=== PATIENT | female | born 1940 | race Caucasian/White ===

== ENCOUNTER 2017-11-05 12:35 | Inpatient (IN) ==
[2017-11-05] MEDS ORDERED: 0.9 % Sodium Chloride 1,000 ML IVC ONE (13:00)
[2017-11-05] MEDS ORDERED: Isovue-370 500 ML INFUS..BTL IV ONE (13:01)
[2017-11-05] MEDS ORDERED: Metoclopramide 10 MG/2 ML VIAL IVP ONE (13:01)
[2017-11-05] MEDS ORDERED: *HR* FentaNYL (PF) 100 MCG/2 ML VIAL IVP ONE ×3 (13:01→18:58)
--- NOTE | 2017-11-05 13:03 | Emergency Department Note ---
Disposition Clinical Impression: Sterile pyuria Abdominal pain Qualifiers: Abdominal location: unspecified location Qualified Code(s): R10.9 - Unspecified abdominal pain Acute pancreatitis Qualifiers: Pancreatitis type: unspecified pancreatitis type Disposition: Admitted As Inpatient Condition: Good Referrals: Princess Luque MD [Primary Care Provider] - Forms: ED Satisfaction Letter, Work/School Release General Adult HPI - General Chief complaint: ED Abdominal Pain Stated complaint: Vomiting, abd pain Time Seen by Provider: 11/05/17 12:43 Source: patient Limitations: no limitations Nursing Notes Reviewed: Yes Vital Signs Reviewed: Yes - History of Present Illness HPI Narrative: 76-year-old female with a past medical history of hypertension, hyperlipidemia, diabetes, COPD. she reports onset of generalized abdominal pain with nausea and vomiting that began approximately 48 hours ago. She does not know what precipitated the pain. She denies having pain like this before. She denies any problems with constipation or diarrhea. No fever. The only surgery she has had in her abdomen are a tubal ligation years ago. She denies any difficulty with urinating. Vomit is nonbilious nonbloody. She reports the last time she ate or drank anything was early this morning and that she only had clear liquids. That was at about 8:00am which is about 5 hours prior to arrival. She reports numerous episodes of vomiting. No chest pain or shortness of breath. She saw Dr Garcia 2 years ago for a colonoscopy which she reports was unremarkable. Radiation: non-radiation Pain Severity: severe Pain Scale: 10 Consistency: constant Improves with: nothing Worsens with: nothing Associated symptoms: Reports: denies other symptoms Treatments Prior to Arrival: none - Related Data Allergies Allergy/AdvReac Type Severity Reaction Status Date / Time No Known Allergies Allergy Verified 11/05/17 16:17 All systems ED: reviewed and negative except as stated. Constitutional: Denies: fever ENT ED: Denies: throat pain Cardiovascular: Denies: chest pain Respiratory: Denies: cough Gastrointestinal: Reports: abdominal pain, nausea, vomiting. Denies: diarrhea, constipation Musculoskeletal: Denies: back pain Integumentary: Denies: rash Endocrine: Reports: fatigue Past Medical History - Past Medical History Medical history: Reports: arthritis, COPD, GERD, hypertension Psychiatric history: Reports: no psych history - Social History Smoking Status: Current every day smoker Alcohol use: Reports: none Physical Exam - General Limitations: no limitations General appearance: alert, in no apparent distress - Head Head exam: atraumatic - Eye Eye exam: Present: normal appearance, PERRL - ENT ENT exam: normal exam - Neck Neck exam: Present: normal inspection - Chest Chest inspection: Present: normal inspection - Respiratory Respiratory exam: Present: normal lung sounds bilaterally. Absent: respiratory distress - Cardiovascular Cardiovascular exam: Present: normal rhythm, tachycardia - Abdominal Exam Abdominal exam: Present: soft, tenderness (Generalized tenderness with guarding and rebound.) - Extremities Exam Extremities exam: Present: normal inspection - Neurological Exam Neurological exam: Present: alert, oriented X3 - Skin Skin exam: Present: warm, dry Course Course Narrative: 1mm of ST depression in lateral leads. No chest pain or DALE. No old EKG to compare to. Negative troponin. CT scan shows diffuse inflammation around the pancreas along with free fluid in the abdomen. WBC count is elevated at she is afebrile. Lipase is elevated and she has a sterile pyuria. This is likely secondary to acute pancreatitis. I called and spoke with the general surgeon contract design agent Dr. Garcia who recommended treating this with pain control, hydration, nothing by mouth. She has not had a fever and her fluid in her abdomen can be explained by the pancreatitis. There is no bacteria in her urine so it will be cultured. However, will give iv antibiotics until the culture returns. She feels significantly better after pain control and IV fluids. Will admit to the hospitalist Vital Signs Temperature 98.2 F 11/05/17 12:37 Pulse Rate 102 11/05/17 12:37 Respiratory Rate 20 11/05/17 12:37 Blood Pressure 159/81 11/05/17 12:37 O2 Sat by Pulse Oximetry 94 11/05/17 12:37 Temperature 98.2 F 11/05/17 13:10 Pulse Rate 93 11/05/17 15:00 Respiratory Rate 20 11/05/17 15:00 Blood Pressure 155/81 11/05/17 15:00 O2 Sat by Pulse Oximetry 95 11/05/17 15:00 Oxygen Delivery Oxygen Delivery Room Air Medical Decision Making - Medical Records Medical records reviewed: Yes I reviewed the patient's medical records. - Lab Data Lab results reviewed: Yes I reviewed the patient's lab results. Result diagrams: 11/05/17 13:11 11/05/17 13:11 Lab Results 11/05/17 11/05/17 11/05/17 Range/Units 13:11 13:11 13:11 WBC 18.0 H (4.3-11.1) K/mcL RBC 4.39 (3.82-4.97) M/mcL Hgb 15.4 (11.5-15.4) g/dL Hct 42.9 (35.3-44.9) % MCV 97.7 (83.0-100.0) fL MCH 35.1 H (28.0-33.3) pg MCHC 35.9 H (31.6-35.5) g/dL RDW 12.2 (11.5-14.5) % Plt Count 247 (140-400) K/mcL MPV 9.5 (9.4-12.4) fL Immature Gran % 0.4 (0-4) % Seg Neutrophils % 84.4 % Lymphocytes % 7.5 % Monocytes % 7.5 % Eosinophils % 0.0 % Basophils % 0.2 % Neutrophils # 15.2 H (1.6-8.9) K/mcL Lymphocytes # 1.4 (0.6-4.6) K/mcL Monocytes # 1.4 H (0.0-1.3) K/mcL Eosinophils # 0.0 (0.0-0.6) K/mcL Basophils # 0.0 (0.0-0.2) K/mcL PT 12.2 H (9.4-12.1) Seconds INR 1.1 APTT 26.9 (26.0-36.0) Seconds Sodium 130 L (136-145) mEq/L Potassium 3.2 L (3.5-5.1) mEq/L Chloride 94 L (98-107) mEq/L Carbon Dioxide 27 (23-29) mEq/L BUN 15 (8-23) mg/dL Creatinine 0.84 (0.60-1.20) mg/dL Est GFR ( Amer) > 60 (> 60) Est GFR (Non-Af Amer) > 60 (> 60) BUN/Creatinine Ratio 18 (6-26) Glucose 204 H (70-105) mg/dL Calculated Osmolality 277 L (280-300) Lactic Acid (0.5-2.2) mmol/L Calcium 9.7 (8.6-10.3) mg/dL Total Bilirubin 0.6 (0.3-1.0) mg/dL Direct Bilirubin 0.1 (0.0-0.2) mg/dL Indirect Bilirubin 0.5 (0.0-1.2) mg/dL AST 16 (13-39) Units/L ALT 25 (7-52) Units/L Alkaline Phosphatase 47 (34-104) Units/L Troponin I < 0.03 (< 0.04) ng/mL Serum Total Protein 6.8 (6.4-8.9) g/dL Albumin 4.3 (3.5-5.7) g/dL Globulin 2.5 (2.4-3.5) g/dL Albumin/Globulin Ratio 1.7 (1.1-2.2) Lipase 227 H (11-82) Units/L Urine Color (Yellow) Urine Clarity (Clear) Urine pH (5.0-8.0) pH Units Ur Specific [place] (1.010-1.025) Urine Protein (Neg-Trace) mg/dL Urine Glucose (UA) (Normal) mg/dL Urine Ketones (Negative) mg/dL Urine Blood (Negative) Urine Nitrite (Negative) Urine Bilirubin (Negative) Urine Urobilinogen (Normal) mg/dL Ur Leukocyte Esterase (Negative) Urine Microscopic RBC (0-3) per hpf Urine Microscopic WBC (0-3) per hpf Ur Squamous Epith Cells (None-Few) per lpf Urine Bacteria (None-Few) per hpf Hyaline Casts (None-Few) per lpf Ur Culture Indicated? (NO) 11/05/17 11/05/17 Range/Units 13:11 13:33 WBC (4.3-11.1) K/mcL RBC (3.82-4.97) M/mcL Hgb (11.5-15.4) g/dL Hct (35.3-44.9) % MCV (83.0-100.0) fL MCH (28.0-33.3) pg MCHC (31.6-35.5) g/dL RDW (11.5-14.5) % Plt Count (140-400) K/mcL MPV (9.4-12.4) fL Immature Gran % (0-4) % Seg Neutrophils % % Lymphocytes % % Monocytes % % Eosinophils % % Basophils % % Neutrophils # (1.6-8.9) K/mcL Lymphocytes # (0.6-4.6) K/mcL Monocytes # (0.0-1.3) K/mcL Eosinophils # (0.0-0.6) K/mcL Basophils # (0.0-0.2) K/mcL PT (9.4-12.1) Seconds INR APTT (26.0-36.0) Seconds Sodium (136-145) mEq/L Potassium (3.5-5.1) mEq/L Chloride (98-107) mEq/L Carbon Dioxide (23-29) mEq/L BUN (8-23) mg/dL Creatinine (0.60-1.20) mg/dL Est GFR ( Amer) (> 60) Est GFR (Non-Af Amer) (> 60) BUN/Creatinine Ratio (6-26) Glucose (70-105) mg/dL Calculated Osmolality (280-300) Lactic Acid 2.6 H (0.5-2.2) mmol/L Calcium (8.6-10.3) mg/dL Total Bilirubin (0.3-1.0) mg/dL Direct Bilirubin (0.0-0.2) mg/dL Indirect Bilirubin (0.0-1.2) mg/dL AST (13-39) Units/L ALT (7-52) Units/L Alkaline Phosphatase (34-104) Units/L Troponin I (< 0.04) ng/mL Serum Total Protein (6.4-8.9) g/dL Albumin (3.5-5.7) g/dL Globulin (2.4-3.5) g/dL Albumin/Globulin Ratio (1.1-2.2) Lipase (11-82) Units/L Urine Color Dark Yellow (Yellow) Urine Clarity Turbid A (Clear) Urine pH 5.5 (5.0-8.0) pH Units Ur Specific [place] 1.027 H (1.010-1.025) Urine Protein 30 H (Neg-Trace) mg/dL Urine Glucose (UA) 500 H (Normal) mg/dL Urine Ketones Negative (Negative) mg/dL Urine Blood Trace H (Negative) Urine Nitrite Negative (Negative) Urine Bilirubin Negative (Negative) Urine Urobilinogen Normal (Normal) mg/dL Ur Leukocyte Esterase Moderate H (Negative) Urine Microscopic RBC 5-15 H (0-3) per hpf Urine Microscopic WBC TNTC H (0-3) per hpf Ur Squamous Epith Cells Many H (None-Few) per lpf Urine Bacteria None Seen (None-Few) per hpf Hyaline Casts None Seen (None-Few) per lpf Ur Culture Indicated? NO. A (NO) - Radiology Data Radiology results reviewed: Yes I reviewed the patient's radiology results. - EKG Data EKG #1 EKG attestation: Yes I reviewed and interpreted this EKG. EKG shows normal: sinus rhythm Rate: tachycardia Rhythm: NSR ST segment depression in: v3, v4, v5, v6 Interpretation: other (1mm of ST depression in lateral leads.)
[2017-11-05 13:25] LABS: Basophils % 0.2 %; Hematocrit 42.9 % (35.3-44.9); Hemoglobin 15.4 g/dL (11.5-15.4); Immature Granulocytes % 0.4 % (0-4); Lymphocytes # 1.4 K/mcL (0.6-4.6); Lymphocytes % 7.5 %; Mean Corpuscular HGB Conc 35.9 g/dL (31.6-35.5); Mean Corpuscular Hemoglobin 35.1 pg (28.0-33.3); Mean Corpuscular Volume 97.7 fL (83.0-100.0); Mean Platelet Volume 9.5 fL (9.4-12.4); Monocytes # 1.4 K/mcL (0.0-1.3); Monocytes % 7.5 %; Neutrophils # 15.2 K/mcL (1.6-8.9); Platelet Count 247 K/mcL (140-400); Red Blood Count 4.39 M/mcL (3.82-4.97); Red Cell Distribution Width 12.2 % (11.5-14.5); Segmented Neutrophils % 84.4 %
--- NOTE | 2017-11-05 13:31 | Emergency Department Note ---
Disposition Clinical Impression: Abdominal pain Qualifiers: Abdominal location: unspecified location Qualified Code(s): R10.9 - Unspecified abdominal pain Disposition: Still a Patient Referrals: Princess Luque MD [Primary Care Provider] - Forms: ED Satisfaction Letter, Work/School Release General Adult HPI - General Chief complaint: ED Abdominal Pain Stated complaint: Vomiting, abd pain Time Seen by Provider: 11/05/17 12:43 Source: patient Limitations: no limitations - History of Present Illness Pain Scale: 10 Improves with: nothing Worsens with: nothing Associated symptoms: Reports: denies other symptoms Treatments Prior to Arrival: none - Related Data Allergies Allergy/AdvReac Type Severity Reaction Status Date / Time No Known Allergies Allergy Verified 09/14/15 13:26 Constitutional: Denies: fever ENT ED: Denies: throat pain Cardiovascular: Denies: chest pain Respiratory: Denies: cough Gastrointestinal: Reports: abdominal pain, nausea, vomiting. Denies: diarrhea, constipation Musculoskeletal: Denies: back pain Integumentary: Denies: rash Endocrine: Reports: fatigue Past Medical History - Past Medical History Medical history: Reports: arthritis, COPD, diabetes, hyperlipidemia, hypertension Psychiatric history: Reports: no psych history - Social History Smoking Status: Current every day smoker Alcohol use: Reports: none Drug use: Reports: none Physical Exam - General Limitations: no limitations General appearance: alert, in no apparent distress Course Vital Signs Temperature 98.2 F 11/05/17 12:37 Pulse Rate 102 11/05/17 12:37 Respiratory Rate 20 11/05/17 12:37 Blood Pressure 159/81 11/05/17 12:37 O2 Sat by Pulse Oximetry 94 11/05/17 12:37 Temperature 98.2 F 11/05/17 13:10 Pulse Rate 102 11/05/17 13:10 Respiratory Rate 20 11/05/17 13:10 Blood Pressure 159/81 11/05/17 13:10 O2 Sat by Pulse Oximetry 94 11/05/17 13:10 Oxygen Delivery Oxygen Delivery Room Air Medical Decision Making - Lab Data Result diagrams: 11/05/17 13:11 Lab Results 11/05/17 Range/Units 13:11 WBC 18.0 H (4.3-11.1) K/mcL RBC 4.39 (3.82-4.97) M/mcL Hgb 15.4 (11.5-15.4) g/dL Hct 42.9 (35.3-44.9) % MCV 97.7 (83.0-100.0) fL MCH 35.1 H (28.0-33.3) pg MCHC 35.9 H (31.6-35.5) g/dL RDW 12.2 (11.5-14.5) % Plt Count 247 (140-400) K/mcL MPV 9.5 (9.4-12.4) fL Immature Gran % 0.4 (0-4) % Seg Neutrophils % 84.4 % Lymphocytes % 7.5 % Monocytes % 7.5 % Eosinophils % 0.0 % Basophils % 0.2 % Neutrophils # 15.2 H (1.6-8.9) K/mcL Lymphocytes # 1.4 (0.6-4.6) K/mcL Monocytes # 1.4 H (0.0-1.3) K/mcL Eosinophils # 0.0 (0.0-0.6) K/mcL Basophils # 0.0 (0.0-0.2) K/mcL Attestation Statement - Attestation Attestation: I examined this patient and my medical decision-making was reviewed with the Resident Physician. I agree with the documented findings, disposition and treatment plan as described except to the extent set forth below. 76 year old female presents to the ED with complaints of abdominal pain that radiates into her back. She stats this started about 3 days ago and that now it is difficult for her to sit and has mild periotoneal signs on exam. She seems to be in pain. She also had been vomitting preivous to today, NBNB. WE are concerned for a perforated viscus, colitis, diverticultiis. WE will do labs and ABCT with IV contrst.
[2017-11-05 13:32] LABS: INR 1.1; Prothrombin Time 12.2 Seconds (9.4-12.1)
[2017-11-05 13:34] LABS: Activated Partial Thrombo Time 26.9 Seconds (26.0-36.0)
[2017-11-05 13:41] LABS: Bilirubin,Urine Negative (Negative); Blood,Urine Trace (Negative); Clarity,Urine Turbid (Clear); Color,Urine Dark Yellow (Yellow); Glucose,Urine (UA) 500 mg/dL (Normal); Ketones,Urine Negative (Negative); Leukocyte Esterase,Urine Moderate (Negative); Nitrite,Urine Negative (Negative); PH,Urine 5.5 pH Units (5.0-8.0); Protein,Urine 30 mg/dL (Neg-Trace); Specific Gravity,Urine 1.027 (1.010-1.025); Urobilinogen,Urine Normal (Normal)
[2017-11-05 13:43] LABS: Bacteria,Urine None Seen per hpf (None-Few); Hyaline Casts,Urine None Seen per lpf (None-Few); Squamous Epithelial Cell,Urine Many per lpf (None-Few); WBC,Urine TNTC per hpf (0-3)
[2017-11-05 13:50] LABS: Troponin I < 0.03 ng/mL (< 0.04)
[2017-11-05 13:51] LABS: Alanine Aminotransferase 25 Units/L (7-52); Albumin 4.3 g/dL (3.5-5.7); Albumin/Globulin Ratio 1.7 (1.1-2.2); Alkaline Phosphatase 47 Units/L (34-104); Aspartate Amino Transferase 16 Units/L (13-39); BUN/Creatinine Ratio 18 (6-26); Bilirubin,Direct 0.1 mg/dL (0.0-0.2); Bilirubin,Indirect 0.5 mg/dL (0.0-1.2); Bilirubin,Total 0.6 mg/dL (0.3-1.0); Blood Urea Nitrogen 15 mg/dL (8-23); Calcium 9.7 mg/dL (8.6-10.3); Carbon Dioxide 27 mEq/L (23-29); Chloride 94 mEq/L (98-107); Globulin 2.5 g/dL (2.4-3.5); Glucose 204 mg/dL (70-105); Lipase 227 Units/L (11-82); Osmolality,Calculated 277 (280-300); Potassium 3.2 mEq/L (3.5-5.1); Sodium 130 mEq/L (136-145); Total Protein 6.8 g/dL (6.4-8.9); eGFR For African Americans > 60 (> 60); eGFR For Non-African Americans > 60 (> 60)
[2017-11-05] MEDS ORDERED: 0.9 % Sodium Chloride 1,000 ML IVC SCH (16:15)
[2017-11-05] MEDS ORDERED: cefTRIAXone 1,000 MG in Water for inj. (sterile) 20 ML 10 ML IVP ONE (16:17)
[2017-11-05] MEDS ORDERED: Naloxone 0.4 MG/ML INJ IVP PRN (16:51)
[2017-11-05] MEDS ORDERED: Ondansetron 4 MG/2 ML VIAL IVP PRN (16:57)
--- NOTE | 2017-11-05 17:01 | Internal Med History&Physical ---
Addendum entered and electronically signed by Martha Noyola 11/05/17 18:04: Please get GI consult in am. Original Note: <Martha Noyola - Last Filed: 11/05/17 17:39> Date of Encounter: 11/05/17 Time of Encounter: 16:59 Internal Medicine - H&P: HPI Chief complaint: Abdominal pain, nausea and vomiting Admitted From: Home Plans for Post Hospital Care: Home History of present illness: Ms. Patterson is a 76 year old female with histroy of HLD, htn, copd, sleep apnea , and DM. The patient began having nausea, vomiting and abdominal pain 48 hours ago. She indicated she has had similar pain, however it has not been this severe. CT of the abdomen showed acute interstitial pancreatitis and diverticulosis without evidence of diverticulitis. The colonoscopy 1 year ago and showed moderate colon tortuous. Patient WBC count is 18, will start patient on Rocephin. Blood sugar is 204 on admission, urine positive for glucose. We will give hemoglobin A1c in a.m. The patient denies any alcohol use. Denies nausea and vomiting at this time, will give zofran IV prn. Past Med Surg Social Fam HX - Past Medical History Medical history: arthritis, COPD, GERD, hypertension Psychiatric history: no psych history - Past Surgical History Additional surgical history: tubal ligation - right wrist - colonoscopy - Social History Smoking Status: Current every day smoker Alcohol use: none Drug use: none Internal Medicine - H&P: Meds Albuterol Sulfate [Albuterol Inhaler] 2 puff IH Q4H PRN 11/05/17 [History] Alendronate Sodium [Alendronate Sodium] 70 mg PO SA 11/05/17 [History] Atenolol [Tenormin] 25 mg PO BID 11/05/17 [History] Budesonide/Formoterol 80/4.5 [Symbicort 80/4.5] 2 puff IH BID 11/05/17 [History ] Ergocalciferol (VITAMIN D2) [Vitamin D2] 50,000 unit PO QWEEK 11/05/17 [History] Fenofibrate Nanocrystallized [Fenofibrate] 145 mg PO DAILY 11/05/17 [History] Losartan/Hydrochlorothiazide [Losartan-Hctz 50-12.5 mg Tab] 1 tab PO DAILY 11/05 [History] Metformin HCl [Metformin HCl ER] 1,000 mg PO BID 11/05/17 [History] Pravastatin Sodium [Pravachol] 20 mg PO HS 11/05/17 [History] 3 Allergy/AdvReac Type Severity Reaction Status Date / Time No Known Allergies Allergy Verified 11/05/17 16:17 All Systems PM: A 10-system review of systems was performed and is negative for pertinent findings except as documented above in the HPI. - Constitutional Constitutional: no chills, no fever(s), no night sweats - EENT Eyes: no change in vision, no discharge, no pain, no photophobia Ears: no ear discharge, no ear pain, no tinnitus Nose, mouth and throat: no dysphagia, no nasal discharge, no neck pain, no sore throat - Cardiovascular Cardiovascular ROS IM: no chest pain, no diaphoresis, no dyspnea, no lightheadedness, no palpitations, no syncope - Respiratory Respiratory: no cough, no dyspnea, no wheezing, no excessive phlegm production - Gastrointestinal Gastrointestinal: abdominal pain, nausea, no diarrhea, no hematemesis, no hematochezia, no melena, no vomiting - Genitourinary Genitourinary: no change in urinary stream, no dysuria, no flank pain, no hematuria - Musculoskeletal Musculoskeletal ROS IM: no numbness, no tingling - Integumentary Integumentary IM: no rash, no unusual bruising - Neurological Neurological ROS: no confusion, no convulsions, no focal weakness, no numbness, no tingling, no tremor(s) - Hematologic/Lymphatic Hematologic/Lymphatic: no easy bruising - Constitutional Vitals: Temp Pulse Resp BP Pulse Ox 98.2 F 110 20 169/109 92 11/05/17 13:10 11/05/17 16:00 11/05/17 16:00 11/05/17 16:00 11/05/17 16:14 General appearance: Present: A&O X 3 - Head Head exam: Present: atraumatic, normocephalic - Eye Eye exam: Present: PERRL, conjuntiva pink, sclera anicteric Pupils: Present: PERRL - Neck Neck exam general surgery: Present: supple, trachea midline. Absent: lymphadenopathy - Respiratory Respiratory exam: Present: decreased breath sounds, CTAB. Absent: accessory muscle use, rales, rhonchi, wheezes - Cardiovascular Cardiovascular exam: Present: RRR, +S1, +S2. Absent: diastolic murmur, gallop, rubs, systolic murmur - GI/Abdominal GI/Abdominal exam: Present: distended, normal bowel sounds, soft, tenderness ( Generalized), no peritoneal signs - Extremities Exam Extremities exam: Present: warm, radial pulses palpable and symmetrical. Absent : calf tenderness, cyanotic, pedal edema - Neurological Exam Neurological exam: Present: CN II-XII intact, oriented X3, no focal deficits. Absent: pronater drift, facial droop, speech deficit - Skin Skin exam: Present: dry, intact Internal Med - H&P Results - Labs CBC & Chem 7: 11/05/17 13:11 11/05/17 13:11 Labs: Short CBC 11/05/17 Range/Units 13:11 WBC 18.0 H (4.3-11.1) K/mcL Hgb 15.4 (11.5-15.4) g/dL Hct 42.9 (35.3-44.9) % Plt Count 247 (140-400) K/mcL Neutrophils # 15.2 H (1.6-8.9) K/mcL BMP 11/05/17 13:11 Sodium 130 L Potassium 3.2 L Chloride 94 L Carbon Dioxide 27 BUN 15 Creatinine 0.84 Glucose 204 H Calcium 9.7 Cardiac Enzymes 11/05/17 Range/Units 13:11 Troponin I < 0.03 (< 0.04) ng/mL Liver Function 11/05/17 Range/Units 13:11 Total Bilirubin 0.6 (0.3-1.0) mg/dL Direct Bilirubin 0.1 (0.0-0.2) mg/dL AST 16 (13-39) Units/L ALT 25 (7-52) Units/L Alkaline Phosphatase 47 (34-104) Units/L Albumin 4.3 (3.5-5.7) g/dL Urine 11/05/17 Range/Units 13:33 Urine Color Dark Yellow (Yellow) Urine Clarity Turbid A (Clear) Urine pH 5.5 (5.0-8.0) pH Units Ur Specific [place] 1.027 H (1.010-1.025) Urine Protein 30 H (Neg-Trace) mg/dL Urine Glucose (UA) 500 H (Normal) mg/dL - Impressions ITS Impressions Abdomen/Pelvis CT 11/05/17 13:01 IMPRESSION: Findings likely represent acute interstitial pancreatitis. No drainable fluid collection or pancreatic necrosis. Diverticulosis without evidence of diverticulitis. D/ / Douglas Gardner MD / Douglas Gardner MD Interpreting Provider: Douglas Gardner MD - Assessment and plan (1) Acute pancreatitis Current Visit: Yes Status: Acute Assessment and plan: RUQ ultrasound to r/o gallstones Patient is nonalcoholic Pain control, oral narcotic oxycodone when necessary Monitor daily labs including lipase and amylase Fasting lipid panel to monitor cholesterol levels Iv rocephin due to elevated WBC, prevent infection IVF's Qualifiers: Pancreatitis type: unspecified pancreatitis type Acute pancreatitis complication: unspecified Qualified Code(s): K85.90 - Acute pancreatitis without necrosis or infection, unspecified (2) Abdominal pain Current Visit: Yes Status: Acute Assessment and plan: RUQ ultrasound r/o gallstones Pain control, oral narcotic oxycodone when necessary Monitor daily labs including lipase and amylase IVF's Qualifiers: Abdominal location: generalized Qualified Code(s): R10.84 - Generalized abdominal pain (3) COPD (chronic obstructive pulmonary disease) Current Visit: Yes Status: Acute Assessment and plan: CPAP at HS Home meds-Bronchodilators Home O2 Pulse oximetry when on cpap Qualifiers: COPD type: unspecified COPD Qualified Code(s): J44.9 - Chronic obstructive pulmonary disease, unspecified (4) Diabetes mellitus Current Visit: Yes Status: Acute Assessment and plan: Accu-Cheks before meals and at bedtime Goal of blood sugar less than 200 Hemoglobin A1c in a.m. Qualifiers: Diabetes mellitus type: type 2 Diabetes mellitus fci insulin use: without termite control service representative use Diabetes mellitus complication status: with unspecified complications Qualified Code(s): E11.8 - Type 2 diabetes mellitus with unspecified complications (5) Sleep apnea Current Visit: Yes Status: Acute Assessment and plan: History of Sleep apnea, wears home o2-2liters CPAP at HS. Pulse oximetry when on cpap Qualifiers: Sleep apnea type: unspecified type Qualified Code(s): G47.30 - Sleep apnea , unspecified - Time Spent With Patient Total time spent is greater than 50% in coordination of care (as documented) at patient's floor/unit and/or counseling patient: less than 15 minutes <Tigist Alvarado - Last Filed: 11/06/17 08:17> Date of Encounter: 11/05/17 Internal Medicine - H&P: HPI History of present illness: Ms. Patterson is a 76 year old female All Systems PM: A 10-system review of systems was performed and is negative for pertinent findings except as documented above in the HPI. - Constitutional Vitals: Temp Pulse Resp BP Pulse Ox 97.5 F L 72 16 113/55 95 11/06/17 07:19 11/06/17 07:19 11/06/17 07:42 11/06/17 07:19 11/06/17 07:42 Internal Med - H&P Results - Labs CBC & Chem 7: 11/06/17 06:12 11/06/17 06:12 Labs: Short CBC 11/06/17 Range/Units 06:12 WBC 16.1 H (4.3-11.1) K/mcL Hgb 13.8 D (11.5-15.4) g/dL Hct 39.3 (35.3-44.9) % Plt Count 219 (140-400) K/mcL Neutrophils # 13.2 H (1.6-8.9) K/mcL BMP 11/06/17 06:12 Sodium 136 Potassium 3.6 Chloride 103 Carbon Dioxide 26 BUN 11 Creatinine 0.67 Glucose 145 H Calcium 8.2 L Liver Function 11/06/17 Range/Units 06:12 Total Bilirubin 0.4 (0.3-1.0) mg/dL AST 13 (13-39) Units/L ALT 17 (7-52) Units/L Alkaline Phosphatase 38 (34-104) Units/L Albumin 3.4 L (3.5-5.7) g/dL - Attending Attestation I have personally performed a face to face evaluation on this patient. I have reviewed and agree with the care plan provided by LEGAL SUPPORT SPECIALIST Martha Noyola. History and Exam by me shows: Ms. Patterson is a 76 year old female with histroy of HLD, htn, copd, sleep apnea , and DM. The patient began having nausea, vomiting and abdominal pain 48 hours ago. She indicated she has had similar pain, however it has not been this severe. CT of the abdomen showed acute interstitial pancreatitis and diverticulosis without evidence of diverticulitis. She denied any melena / bright red blood per rectum. Gen: A, A, O x 3 Chest: Diminished BS b/l Heart: S1S2+ Abd: Soft, moderate discomfort RUQ a/p 1. Acute pancreatitis NPO IV hydration repeat labs in AM Analgesics PRN U/S of RUQ Abd in AM - Time Spent With Patient Total time spent is greater than 50% in coordination of care (as documented) at patient's floor/unit and/or counseling patient:
[2017-11-05] MEDS: 0.9 % Sodium Chloride 1,000 ML IVC SCH (17:07)
[2017-11-05] MEDS ORDERED: cefTRIAXone 2,000 MG in Water for inj. (sterile) 20 ML 20 ML IVP SCH (18:00)
[2017-11-05] MEDS ORDERED: D5% in Water 1,000 ML IVC PRN (18:06)
[2017-11-05] MEDS ORDERED: Dextrose Gel 15 GM/37.5 ML TUBE PO PRN ×2 (18:06)
[2017-11-05] MEDS ORDERED: *HR* Dextrose 50 % in Water (Syg) 50 ML SYRINGE IVP PRN (18:06)
[2017-11-05] MEDS: Budesonide/Formoterol 80/4.5 MDI IH SCH (20:27)
[2017-11-05] MEDS: Insulin LISPRO 300 UNITS/3 ML VIAL SQ SCH (20:35)
[2017-11-05] MEDS: *HR* OxyCODONE/APAP 10/325 TABLET PO PRN (23:02)
[2017-11-06] MEDS: 0.9 % Sodium Chloride 1,000 ML IVC SCH ×3 (01:26→16:58)
[2017-11-06] MEDS: cefTRIAXone 2,000 MG in Water for inj. (sterile) 20 ML 20 ML IVP SCH ×2 (03:09→16:49)
[2017-11-06] MEDS: *HR* OxyCODONE/APAP 10/325 TABLET PO PRN ×4 (06:00→21:41)
[2017-11-06 07:19] LABS: Basophils % 0.2 %; Eosinophils % 0.2 %; Hematocrit 39.3 % (35.3-44.9); Immature Granulocytes % 1.1 % (0-4); Lymphocytes # 1.1 K/mcL (0.6-4.6); Mean Corpuscular HGB Conc 35.1 g/dL (31.6-35.5); Mean Corpuscular Hemoglobin 35.1 pg (28.0-33.3); Mean Platelet Volume 10.2 fL (9.4-12.4); Monocytes # 1.5 K/mcL (0.0-1.3); Monocytes % 9.4 %; Neutrophils # 13.2 K/mcL (1.6-8.9); Platelet Count 219 K/mcL (140-400); Red Blood Count 3.93 M/mcL (3.82-4.97); Red Cell Distribution Width 12.3 % (11.5-14.5); Segmented Neutrophils % 82.1 %
[2017-11-06 07:22] LABS: Hemoglobin 13.8 g/dL (11.5-15.4)
[2017-11-06 07:32] LABS: Alanine Aminotransferase 17 Units/L (7-52); Albumin 3.4 g/dL (3.5-5.7); Albumin/Globulin Ratio 1.4 (1.1-2.2); Alkaline Phosphatase 38 Units/L (34-104); Aspartate Amino Transferase 13 Units/L (13-39); BUN/Creatinine Ratio 16 (6-26); Bilirubin,Total 0.4 mg/dL (0.3-1.0); Blood Urea Nitrogen 11 mg/dL (8-23); Calcium 8.2 mg/dL (8.6-10.3); Carbon Dioxide 26 mEq/L (23-29); Chloride 103 mEq/L (98-107); Chol/HDL Ratio 4.3 (0-4.9); Cholesterol 136 mg/dL (< 200); Globulin 2.4 g/dL (2.4-3.5); Glucose 145 mg/dL (70-105); HDL Cholesterol 32 mg/dL (40-59); LDL Cholesterol,Calculated 75 mg/dL (0-99); Osmolality,Calculated 284 (280-300); Potassium 3.6 mEq/L (3.5-5.1); Sodium 136 mEq/L (136-145); Total Protein 5.8 g/dL (6.4-8.9); Triglycerides 146 mg/dL (< 150); eGFR For African Americans > 60 (> 60); eGFR For Non-African Americans > 60 (> 60)
[2017-11-06 07:35] LABS: Amylase 50 Units/L (29-103); Lipase 71 Units/L (11-82)
[2017-11-06] MEDS: Budesonide/Formoterol 80/4.5 MDI IH SCH ×2 (07:42→20:43)
[2017-11-06] MEDS: Insulin LISPRO 300 UNITS/3 ML VIAL SQ SCH ×4 (08:35→21:53)
[2017-11-06] MEDS: Fenofibrate 54 MG TABLET PO SCH (08:35)
[2017-11-06] MEDS ORDERED: Losartan/HCTZ 50-12.5 TABLET PO SCH (09:00)
[2017-11-06 09:21] LABS: Estimated Average Glucose 143 mg/dl; Hemoglobin A1C 6.6 %
--- NOTE | 2017-11-06 12:09 | Gastroenterology Consult Note ---
<RodgersPeña Trejo - Last Filed: 11/06/17 12:07> Date of Encounter: 11/06/17 Time of Encounter: 11:45 - Assessment and plan (1) Acute pancreatitis Current Visit: Yes Status: Acute Assessment and plan: BISAP score 1. Pt denies any alcohol intake. Triglycerides 146, LFTs wnl, lipase 227 on admission and 71 today. Check ionized calcium, IgG4, and YENI. Continue IV fluids at 150 ml/hr, anti-emetics, and pain control. Change diabetic diet to clear liquid diet and advance slowly as tolerated. RUQ US has been ordered. Qualifiers: Pancreatitis type: unspecified pancreatitis type Acute pancreatitis complication: unspecified Qualified Code(s): K85.90 - Acute pancreatitis without necrosis or infection, unspecified (2) Abdominal pain Current Visit: Yes Status: Acute Assessment and plan: Secondary to pancreatitis. Qualifiers: Abdominal location: generalized Qualified Code(s): R10.84 - Generalized abdominal pain - Time Spent With Patient Total time spent is greater than 50% in coordination of care (as documented) at patient's floor/unit and/or counseling patient: GI History of Present Illness - Data of Consult Patient: new to practice Consult date: 11/06/17 Requesting Physician: Tigist Alvarado MD - Consult Narrative Reason for consult: Acute pancreatitis History of present illness: Ms. Patterson is a 76 year old female with PMHx of arthritis, COPD, GERD, HLD, HTN and DM who presented to the ED with nausea, vomiting, and abdominal pain for [address] of the abdomen showed acute interstitial pancreatitis and diverticulosis without evidence of diverticulitis. On admission HR 102 with WBC 18, and was started on Rocephin. Pt denies alcohol use. Triglycerides 146. She was started on IVFs, pain control, and anti-emetics. Procedures: Colonoscopy 09/14/2015 Dr. Garcia: Tortuous colon, otherwise normal. NSAIDs: None Anticoagualtion: None Past Med Surg Social Fam HX - Past Medical History Medical history: arthritis, COPD, diabetes, hyperlipidemia, hypertension Additional medical history: sleep apnea Psychiatric history: no psych history - Past Surgical History Additional surgical history: tubal ligation - right wrist - colonoscopy - Social History Smoking Status: Current every day smoker Packs per day: 1 Smokeless Tobacco Status: No Alcohol use: none Drug use: none - Gastrointestinal Gastrointestinal: Present: as per HPI - Constitutional Constitutional: as per HPI - EENT Eyes: as per HPI Ears: Present: as per HPI Nose, mouth and throat: Present: as per HPI - Cardiovascular Cardiovascular ROS: Present: as per HPI - Respiratory Respiratory IM: Present: as per HPI - Genitourinary Genitourinary: Absent: change in color, Urinary frequency - Neurological ROS Neurological GI: Present: as per HPI - Hematologic/Lymphatic Hematologic/Lymphatic pediatric: Present: as per HPI - Musculoskeletal Musculoskeletal ROS GI: Present: as per HPI - Integumentary Integumentary GI: Present: as per HPI - Psychiatric ROS Psychiatric GI: Present: as per HPI - Endocrine Endocrine IM: Present: as per HPI - Constitutional Vitals: Temp Pulse Resp BP Pulse Ox 97.6 F 68 16 114/70 94 11/06/17 10:14 11/06/17 10:14 11/06/17 10:14 11/06/17 10:14 11/06/17 08:30 General appearance: Present: cooperative, A&O X 3, no acute distress, answers questions appropriately - Head Head exam: Present: atraumatic, normocephalic - Eye Eye exam: Present: normal appearance, sclera anicteric - ENT ENT exam: Present: mucous membranes dry - Neck Neck exam general surgery: Present: normal inspection, trachea midline - Respiratory Respiratory exam: Present: CTAB. Absent: rales, rhonchi, wheezes - Cardiovascular Cardiovascular exam: Present: RRR, +S1, +S2 - GI/Abdominal GI/Abdominal exam: Present: soft, tenderness (generalized), no peritoneal signs. Absent: distended, firm, guarding - Rectal Rectal exam: Present: deferred - Extremities Exam Extremities exam: Present: warm - Neurological Exam Neurological exam: Present: no focal deficits - Psychiatric Psychiatric exam: Present: normal affect, normal mood - Skin Skin exam: Present: dry, intact, normal color, warm Results - Labs CBC & Chem 7: 11/06/17 06:12 11/06/17 06:12 Labs: Last Result Calcium 8.2 mg/dL (8.6-10.3) L 11/06/17 06:12 Troponin I < 0.03 ng/mL (< 0.04) 11/05/17 13:11 Triglycerides 146 mg/dL (< 150) 11/06/17 06:12 Entire Visit Hgb 13.8 g/dL (11.5-15.4) D 11/06/17 06:12 Hct 39.3 % (35.3-44.9) 11/06/17 06:12 PT 12.2 Seconds (9.4-12.1) H 11/05/17 13:11 Total Bilirubin 0.4 mg/dL (0.3-1.0) 11/06/17 06:12 AST 13 Units/L (13-39) 11/06/17 06:12 ALT 17 Units/L (7-52) 11/06/17 06:12 Amylase 50 Units/L (29-103) 11/06/17 06:12 Lipase 71 Units/L (11-82) 11/06/17 06:12 - ABG ABG results: PT/INR, D-dimer PT 12.2 Seconds (9.4-12.1) H 11/05/17 13:11 Consult Discharge Plan - Plan Referrals: Princess Luque MD [Primary Care Provider] - <Segun Amaya - Last Filed: 11/06/17 18:08> Date of Encounter: 11/06/17 Time of Encounter: 17:55 - Time Spent With Patient Total time spent is greater than 50% in coordination of care (as documented) at patient's floor/unit and/or counseling patient: GI History of Present Illness - Data of Consult Requesting Physician: Tigist Alvarado MD - Consult Narrative History of present illness: Ms. Patterson is a 76 year old female - Constitutional Vitals: Temp Pulse Resp BP Pulse Ox 97.7 F 71 16 109/57 91 11/06/17 14:58 11/06/17 14:58 11/06/17 14:58 11/06/17 14:58 11/06/17 14:58 Results - Labs CBC & Chem 7: 11/06/17 06:12 11/06/17 06:12 Labs: Last Result Calcium 8.2 mg/dL (8.6-10.3) L 11/06/17 06:12 Troponin I < 0.03 ng/mL (< 0.04) 11/05/17 13:11 Triglycerides 146 mg/dL (< 150) 11/06/17 06:12 Entire Visit Hgb 13.8 g/dL (11.5-15.4) D 11/06/17 06:12 Hct 39.3 % (35.3-44.9) 11/06/17 06:12 PT 12.2 Seconds (9.4-12.1) H 11/05/17 13:11 Total Bilirubin 0.4 mg/dL (0.3-1.0) 11/06/17 06:12 AST 13 Units/L (13-39) 11/06/17 06:12 ALT 17 Units/L (7-52) 11/06/17 06:12 Amylase 50 Units/L (29-103) 11/06/17 06:12 Lipase 71 Units/L (11-82) 11/06/17 06:12 - ABG ABG results: PT/INR, D-dimer PT 12.2 Seconds (9.4-12.1) H 11/05/17 13:11 - Impressions Impressions Abdomen Ultrasound 11/06/17 10:30 IMPRESSION: 1. Cholelithiasis. Nonspecific pericholecystic fluid and perihepatic free fluid. Negative sonographic Tillman's sign. 2. Edematous pancreas, compatible with given history of pancreatitis. 3. Complex predominantly cystic lesion within left hepatic lobe with central echogenicity measuring 2 cm. This may represent complicated cyst with calcification. However, follow-up MRI liver protocol is recommended when clinically appropriate growth exclude aggressive lesion. D/ / 11/06/2017 12:24:42 Cuba Wilkerson MD / carrol Interpreting Provider: Cuba Wilkerson MD - Attending Attestation I have personally performed a face to face evaluation on this patient. I have reviewed and agree with the care plan. History and Exam by me shows: Pt seen abdomen is benign. Patient admitted with acute pancreatitis clinically doing better. Recommendation: IV fluid pain control advance diet as tolerated
[2017-11-06 16:32] LABS: VBG Ionized Calcium 1.05 mmol/L (1.15-1.35)
--- NOTE | 2017-11-06 17:26 | Electrocardiograph Report ---
[place] [id number] Test Date: 2017-11-05 Pat Name: Galina Patterson Department: 103 Room: 3A36 Gender: F Unit Aide Tech: SARMAD : 1940 Requested By: Rene Kiran Order Number: [id number] Reading MD: Breanna Wasserman Measurements Intervals [place] Rate: 100 P: 48 MS: 120 QRS: 15 QRSD: 88 T: 53 QT: 362 QTc: 419 Interpretive Statements SINUS TACHYCARDIA POSSIBLE LEFT ATRIAL ENLARGEMENT [-0.1mV P WAVE IN V1/V2] MODERATE ST DEPRESSION [0.05+ mV ST DEPRESSION] Electronically Signed On 11-06-2017 17:25:18 EDT by Breanna Wasserman
--- NOTE | 2017-11-06 17:38 | Internal Med Progress Note ---
Date of Encounter: 11/06/17 Time of Encounter: 16:00 - Assessment and plan (1) Acute pancreatitis Current Visit: Yes Status: Acute Assessment and plan: Improving Lipase back to normal on clear liquid diet IV hydration FLP- WNL Reviewed RUQ u/s showed cholelithiasis, no cholecystitis.. No CBD dilation.. Acute pancreatitis GI on board Talked to pt and her daughter at bed side and explained to them about current care Qualifiers: Pancreatitis type: unspecified pancreatitis type Acute pancreatitis complication: unspecified Qualified Code(s): K85.90 - Acute pancreatitis without necrosis or infection, unspecified (2) COPD (chronic obstructive pulmonary disease) Current Visit: Yes Status: Acute Assessment and plan: stable not in exacerbation resumed home meds Qualifiers: COPD type: unspecified COPD Qualified Code(s): J44.9 - Chronic obstructive pulmonary disease, unspecified (3) Diabetes mellitus Current Visit: Yes Status: Acute Assessment and plan: On ISS HbA1C -6.6 Qualifiers: Diabetes mellitus type: type 2 Diabetes mellitus long-term insulin 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 Diabetes mellitus complication status: with unspecified complications Qualified Code(s): E11.8 - Type 2 diabetes mellitus with unspecified complications (4) Tobacco dependence Current Visit: Yes Status: Acute Assessment and plan: Counseled to quit smoking offered Nicotine patch - Time Spent With Patient Total time spent is greater than 50% in coordination of care (as documented) at patient's floor/unit and/or counseling patient: - Subjective Interval history: Pt states she is feeling little better Still has some abdominal discomfort however her main complain is back pain due the hospital bed she wants to go out and smoke.. Denied any nausea - Constitutional Vitals: Temp Pulse Resp BP Pulse Ox 97.7 F 71 16 109/57 91 11/06/17 14:58 11/06/17 14:58 11/06/17 14:58 11/06/17 14:58 11/06/17 14:58 General appearance: Present: A&O X 3, no acute distress - Head Head exam: Present: atraumatic, normal inspection - Neck Neck exam general surgery: Present: supple - Respiratory Respiratory exam: Present: decreased breath sounds. Absent: rales, respiratory distress, rhonchi, wheezes - Cardiovascular Cardiovascular exam: Present: RRR, +S1, +S2. Absent: tachycardia - GI/Abdominal GI/Abdominal exam: Present: normal bowel sounds, soft. Absent: rebound, rigid, tenderness - Extremities Exam Extremities exam: Absent: calf tenderness, pedal edema, tenderness - Back Exam Back exam: Absent: CVA tenderness (L), CVA tenderness (R) - Psychiatric Psychiatric exam: Present: normal affect, normal mood - Skin Skin exam: Absent: rash Internal Medicine: Result - Labs CBC & Chem 7: 11/06/17 06:12 11/06/17 06:12 Labs: Short CBC 11/06/17 Range/Units 06:12 WBC 16.1 H (4.3-11.1) K/mcL Hgb 13.8 D (11.5-15.4) g/dL Hct 39.3 (35.3-44.9) % Plt Count 219 (140-400) K/mcL Neutrophils # 13.2 H (1.6-8.9) K/mcL BMP 11/06/17 06:12 Sodium 136 Potassium 3.6 Chloride 103 Carbon Dioxide 26 BUN 11 Creatinine 0.67 Glucose 145 H Calcium 8.2 L Liver Function 11/06/17 Range/Units 06:12 Total Bilirubin 0.4 (0.3-1.0) mg/dL AST 13 (13-39) Units/L ALT 17 (7-52) Units/L Alkaline Phosphatase 38 (34-104) Units/L Albumin 3.4 L (3.5-5.7) g/dL - ABG Interpretation ABG results: PT/INR, D-dimer PT 12.2 Seconds (9.4-12.1) H 11/05/17 13:11 - Impressions Impressions Abdomen Ultrasound 11/06/17 10:30 IMPRESSION: 1. Cholelithiasis. Nonspecific pericholecystic fluid and perihepatic free fluid. Negative sonographic Tillman's sign. 2. Edematous pancreas, compatible with given history of pancreatitis. 3. Complex predominantly cystic lesion within left hepatic lobe with central echogenicity measuring 2 cm. This may represent complicated cyst with calcification. However, follow-up MRI liver protocol is recommended when clinically appropriate growth exclude aggressive lesion. D/ / 11/06/2017 12:24:42 Cuba Wilkerson MD / [email or web address] Interpreting Provider: Cuba Wilkerson MD Consult Discharge Plan - Plan Referrals: Princess Luque MD [Primary Care Provider] -
[2017-11-07] MEDS: *HR* OxyCODONE/APAP 10/325 TABLET PO PRN ×2 (01:58→08:59)
[2017-11-07] MEDS: cefTRIAXone 2,000 MG in Water for inj. (sterile) 20 ML 20 ML IVP SCH (05:24)
[2017-11-07] MEDS: 0.9 % Sodium Chloride 1,000 ML IVC SCH (05:25)
[2017-11-07 06:30] LABS: Basophils % 0.2 %; Eosinophils # 0.1 K/mcL (0.0-0.6); Eosinophils % 0.5 %; Hematocrit 36.3 % (35.3-44.9); Immature Granulocytes % 0.6 % (0-4); Lymphocytes # 1.1 K/mcL (0.6-4.6); Lymphocytes % 8.2 %; Mean Corpuscular HGB Conc 32.8 g/dL (31.6-35.5); Mean Corpuscular Volume 100.6 fL (83.0-100.0); Mean Platelet Volume 9.9 fL (9.4-12.4); Monocytes # 1.1 K/mcL (0.0-1.3); Monocytes % 8.7 %; Neutrophils # 10.6 K/mcL (1.6-8.9); Platelet Count 198 K/mcL (140-400); Red Blood Count 3.61 M/mcL (3.82-4.97); Red Cell Distribution Width 12.2 % (11.5-14.5); Segmented Neutrophils % 81.8 %
[2017-11-07 06:33] LABS: Hemoglobin 11.9 g/dL (11.5-15.4)
[2017-11-07 06:46] LABS: Amylase 41 Units/L (29-103); Lipase 79 Units/L (11-82)
[2017-11-07 06:48] LABS: Alanine Aminotransferase 15 Units/L (7-52); Albumin 3.3 g/dL (3.5-5.7); Albumin/Globulin Ratio 1.3 (1.1-2.2); Alkaline Phosphatase 47 Units/L (34-104); Aspartate Amino Transferase 14 Units/L (13-39); BUN/Creatinine Ratio 14 (6-26); Bilirubin,Total 0.3 mg/dL (0.3-1.0); Blood Urea Nitrogen 9 mg/dL (8-23); Calcium 7.9 mg/dL (8.6-10.3); Carbon Dioxide 24 mEq/L (23-29); Chloride 104 mEq/L (98-107); Globulin 2.5 g/dL (2.4-3.5); Glucose 135 mg/dL (70-105); Osmolality,Calculated 279 (280-300); Potassium 3.5 mEq/L (3.5-5.1); Sodium 134 mEq/L (136-145); Total Protein 5.8 g/dL (6.4-8.9); eGFR For African Americans > 60 (> 60); eGFR For Non-African Americans > 60 (> 60)
[2017-11-07] MEDS: Budesonide/Formoterol 80/4.5 MDI IH SCH (07:40)
[2017-11-07] MEDS: Insulin LISPRO 300 UNITS/3 ML VIAL SQ SCH ×2 (08:15→12:05)
[2017-11-07] MEDS: Fenofibrate 54 MG TABLET PO SCH (08:58)
[2017-11-07 10:42] VITALS: BP 99/47
--- NOTE | 2017-11-07 14:40 | Discharge Summary ---
- NOTES TO OUTPATIENT PROVIDER Notes to Outpatient Provider: none Orders not resulted at time of discharge: Pending orders 11/06/17 15:39 YENI IgG PRATIK rflx IFA Routine Immunoglobulin G Subclass 4 Routine Date of Encounter: 11/07/17 Time of Encounter: 11:00 - Discharge Diagnosis (1) Acute pancreatitis Priority: Primary Status: Acute Qualifiers: Pancreatitis type: unspecified pancreatitis type Acute pancreatitis complication: unspecified Qualified Code(s): K85.90 - Acute pancreatitis without necrosis or infection, unspecified (2) COPD (chronic obstructive pulmonary disease) Priority: Secondary Status: Acute Qualifiers: COPD type: unspecified COPD Qualified Code(s): J44.9 - Chronic obstructive pulmonary disease, unspecified (3) Diabetes mellitus Priority: Secondary Status: Acute Qualifiers: Diabetes mellitus type: type 2 Diabetes mellitus rn long term care insulin use: without rn long term care use Diabetes mellitus complication status: with unspecified complications Qualified Code(s): E11.8 - Type 2 diabetes mellitus with unspecified complications (4) Tobacco dependence Priority: Secondary Status: Acute Hospital course: Patient is a 76-year-old female with past medical history significant for hypertension, hyperlipidemia, COPD, MARCO and diabetes who presented to the ER on 11/05/17 due to abdominal pain. Patient reported of a 2 day history of abdominal pain in addition to nausea and vomiting. She indicated she has had similar pain, however it has not been this severe. CT of the abdomen showed acute interstitial pancreatitis and diverticulosis without evidence of diverticulitis. Patient was found to have leukocytosis and elevated lipase and was admitted to the medical surgical floor for acute pancreatitis. During patients hospital stay her pain did tiredness improved after being nothing by mouth and treated with fluid resuscitation. She now tolerating diet and will be discharged to follow-up with primary care provider. - Time Spent with Patient Total time spent providing and/or coordinating discharge services: Less than 30 minutes - Discharge Medications Prescriptions: OxyCODONE/APAP 10/325 [Percocet 10/325 MG] 1 each PO Q4HR PRN 3 Days #18 tablet PRN Reason: Pain Home Medications: Albuterol Sulfate [Albuterol Inhaler] 2 puff IH Q4H PRN 11/05/17 [History] Alendronate Sodium 70 mg PO SA 11/05/17 [History] Atenolol [Tenormin] 25 mg PO BID 11/05/17 [History] Budesonide/Formoterol 80/4.5 [Symbicort 80/4.5] 2 puff IH BID 11/05/17 [History ] Ergocalciferol (VITAMIN D2) [Vitamin D2] 50,000 unit PO QWEEK 11/05/17 [History] Fenofibrate Nanocrystallized [Fenofibrate] 145 mg PO DAILY 11/05/17 [History] Losartan/Hydrochlorothiazide [Losartan-Hctz 50-12.5 mg Tab] 1 tab PO DAILY 11/05 [History] Metformin HCl [Metformin HCl ER] 1,000 mg PO BID 11/05/17 [History] Pravastatin Sodium [Pravachol] 20 mg PO HS 11/05/17 [History] OxyCODONE/APAP 10/325 [Percocet 10/325 MG] 1 each PO Q4HR PRN 3 Days #18 tablet 11/07/17 [Rx] Allergies/Adverse Reactions: 3 Allergy/AdvReac Type Severity Reaction Status Date / Time No Known Allergies Allergy Verified 11/05/17 16:17 Date of admission: 11/05/17 17:49 Primary care physician: Princess Luque Consults: 11/06/17 08:14 Consult to Gastroenterology [CONS] Routine Consulting Provider: Gastroenterology Shabnam Reason for Consult: Acute pancreatitis Time Notified: 08:14 Call Completed: Yes - Constitutional Vitals: Temp Pulse Resp BP Pulse Ox 98.4 F 81 16 99/47 93 11/07/17 10:39 11/07/17 10:39 11/07/17 10:39 11/07/17 10:39 11/07/17 10:39 General appearance: Present: A&O X 3, no acute distress - Respiratory Respiratory exam: Present: CTAB. Absent: accessory muscle use, rales, rhonchi, wheezes - Cardiovascular Cardiovascular exam: Present: RRR, +S1, +S2. Absent: diastolic murmur, gallop, rubs, systolic murmur - Patient Status Disposition: Home, Self-Care Condition: Good - Discharge Instructions Instructions: Pancreatitis (DC), Chronic Obstructive Pulmonary Disease (DC) Follow Up With: Patricia Parada, DEWATERER OPERATOR [Advanced Practice Nurse] - 11/14/17 11:00 am
[2017-11-09 07:26] LABS: Immunoglobulin G Subclass 4 13 mg/dL (1-123)
[2017-11-09 13:24] LABS: ANA IgG by ELISA NONE DETECTED (None Detected)
== END 2017-11-07 15:22 | disposition home or self-care (01) | DRG 440 ==
LOC: EMEROO 12:35 → 3ANU 17:49 → SUATTDRO 17:49 → 3ANU 19:25
PROVIDERS: ADMIT Family Medicine; ATTEND Hospitalist

== ENCOUNTER 2020-01-21 06:18 | Inpatient (IN) ==
[2020-01-21] MEDS ORDERED: CeFAZolin Syr 2,000MG/20 ML 2,000 MG/20 ML SYRINGE IVPB ONE (07:03)
[2020-01-21] MEDS ORDERED: *HR* Rocuronium Bromide 50 MG/5 ML VIAL ONE (07:11)
[2020-01-21] MEDS ORDERED: Dexamethasone 4 MG/ML VIAL ONE (07:11)
[2020-01-21] MEDS ORDERED: Ondansetron 4 MG/2 ML VIAL ONE (07:11)
[2020-01-21] MEDS ORDERED: *HR* Propofol 200 MG/20 ML VIAL IVP ONE (07:11)
[2020-01-21] MEDS ORDERED: *HR* FentaNYL (PF) 100 MCG/2 ML VIAL ONE ×2 (07:11→08:48)
[2020-01-21] MEDS ORDERED: Lidocaine HCL 4 ML Topical Solution (Laryng-O-Jet Kit Sterile Pak) TP ONE (07:11)
[2020-01-21] MEDS ORDERED: Lidocaine -MPF 2% 2 ML VIAL ONE ×2 (07:11→11:32)
[2020-01-21] MEDS ORDERED: Ringers Solution, Lactated 1,000 ML IVC SCH (07:15)
[2020-01-21] MEDS ORDERED: Protamine Sulfate 50 MG/5 ML VIAL IVP ONE (07:15)
[2020-01-21] MEDS ORDERED: Heparin 1,000 UNITS/500 mL 500 ML ONE ×3 (07:16→10:51)
[2020-01-21] MEDS ORDERED: *HR* OxyCODONE Immed Rel 5 MG TABLET PO PRN (07:18)
[2020-01-21] MEDS ORDERED: *HR* HYDROmorphone PF 0.5 MG/0.5 ML SYRINGE IVP PRN (07:18)
[2020-01-21] MEDS ORDERED: *HR* Promethazine 25 MG/ML VIAL IVP PRN (07:18)
[2020-01-21] MEDS ORDERED: Ondansetron 4 MG/2 ML VIAL IVP ONE (07:18)
[2020-01-21] MEDS ORDERED: ceFAZolin 1,000 MG, Sodium Chloride IRRigation 1,000 ML IR ONE (07:45)
[2020-01-21] MEDS ORDERED: EPHEDrine 50 MG/ML VIAL ONE (08:08)
[2020-01-21] MEDS ORDERED: *HR* Labetalol 20 MG/4 ML SYRINGE IVP ONE (11:48)
[2020-01-21] MEDS ORDERED: D5% in 0.45% NACL 1,000 ML IVC SCH (14:08)
[2020-01-21] MEDS ORDERED: *HR* Labetalol 20 MG/4 ML SYRINGE IVP PRN (14:08)
[2020-01-21] MEDS ORDERED: Ondansetron 4 MG/2 ML VIAL IVP PRN (14:08)
[2020-01-21] MEDS ORDERED: Naloxone 0.4 MG/ML INJ IVP PRN (14:08)
[2020-01-21] MEDS ORDERED: Acetaminophen 325 MG TABLET PO PRN (14:08)
[2020-01-21] MEDS ORDERED: *HR* HYDROcodone/Acet 5/325 mg TABLET PO PRN (14:08)
[2020-01-21] MEDS: CeFAZolin 2 GM/120 ML BAG IVPB SCH (16:53)
[2020-01-21] MEDS: Budesonide/Formoterol 80/4.5 1 PUFF INH IH SCH (21:10)
[2020-01-21] MEDS: *HR* Metformin 500 MG TABLET PO SCH (21:24)
[2020-01-21] MEDS: cilostazoL 100 MG TABLET PO SCH (21:24)
[2020-01-21] MEDS: atenoloL 25 MG TABLET PO SCH (21:25)
[2020-01-22] MEDS: CeFAZolin 2 GM/120 ML BAG IVPB SCH ×2 (00:44→07:33)
[2020-01-22 04:14] LABS: Basophils % 0.2 %; Eosinophils % 0.1 %; Hematocrit 34.6 % (35.3-44.9); Hemoglobin 11.5 g/dL (11.5-15.4); Immature Granulocytes % 0.6 % (0-4); Lymphocytes # 1.4 K/mcL (0.6-4.6); Lymphocytes % 9.6 %; Mean Corpuscular HGB Conc 33.2 g/dL (31.6-35.5); Mean Corpuscular Hemoglobin 33.5 pg (28.0-33.3); Mean Corpuscular Volume 100.9 fL (83.0-100.0); Mean Platelet Volume 9.3 fL (9.4-12.4); Monocytes # 1.7 K/mcL (0.0-1.3); Monocytes % 12.1 %; Neutrophils # 11.1 K/mcL (1.6-8.9); Platelet Count 324 K/mcL (140-400); Red Blood Count 3.43 M/mcL (3.82-4.97); Red Cell Distribution Width 13.2 % (11.5-14.5); Segmented Neutrophils % 77.4 %; White Blood Count 14.4 K/mcL (4.3-11.1)
[2020-01-22 04:35] LABS: BUN/Creatinine Ratio 18 (6-26); Blood Urea Nitrogen 13 mg/dL (8-23); Calcium 8.8 mg/dL (8.6-10.3); Carbon Dioxide 24 mEq/L (23-29); Chloride 103 mEq/L (98-107); Glucose 147 mg/dL (70-105); Osmolality,Calculated 287 (280-300); Potassium 3.9 mEq/L (3.5-5.1); Sodium 137 mEq/L (136-145); eGFR For African Americans > 60 (> 60); eGFR For Non-African Americans > 60 (> 60)
[2020-01-22] MEDS: Budesonide/Formoterol 80/4.5 1 PUFF INH IH SCH (07:33)
[2020-01-22] MEDS: atenoloL 25 MG TABLET PO SCH (07:33)
[2020-01-22] MEDS: *HR* Metformin 500 MG TABLET PO SCH (07:33)
[2020-01-22] MEDS: cilostazoL 100 MG TABLET PO SCH (07:33)
[2020-01-22] MEDS ORDERED: Aspirin 325 MG TABLET PO SCH (09:00)
[2020-01-22] MEDS ORDERED: Losartan/HCTZ 50-12.5 TABLET PO SCH (09:00)
[2020-01-22] MEDS ORDERED: (Omega-3/Dha/Epa/Fish Oil [Fish Oil 1,000 Mg Softgel]) PO SCH (09:00)
[2020-01-22] MEDS ORDERED: Cholecalciferol (D-3) 1,000 UNIT (25MCG) TABLET PO SCH (09:00)
[2020-01-22 10:59] VITALS: BP 167/70
== END 2020-01-22 13:55 | disposition home or self-care (01) | DRG 39 ==
LOC: SAMDAY 06:18 → 2NNU 13:21
PROVIDERS: ADMIT Surgery Vascular Surgery; ATTEND Surgery Vascular Surgery

== ENCOUNTER 2020-02-09 16:17 | Observation (INO) ==
[2020-02-09 18:19] LABS: Basophils # 0.1 K/mcL (0.0-0.2); Basophils % 0.8 %; Eosinophils # 0.2 K/mcL (0.0-0.6); Eosinophils % 1.5 %; Hematocrit 40.4 % (35.3-44.9); Hemoglobin 13.6 g/dL (11.5-15.4); Immature Granulocytes % 0.4 % (0-4); Lymphocytes # 1.6 K/mcL (0.6-4.6); Lymphocytes % 14.4 %; Mean Corpuscular HGB Conc 33.7 g/dL (31.6-35.5); Mean Corpuscular Hemoglobin 33.6 pg (28.0-33.3); Mean Corpuscular Volume 99.8 fL (83.0-100.0); Mean Platelet Volume 9.8 fL (9.4-12.4); Monocytes # 1.1 K/mcL (0.0-1.3); Monocytes % 10.1 %; Neutrophils # 8.2 K/mcL (1.6-8.9); Platelet Count 295 K/mcL (140-400); Red Blood Count 4.05 M/mcL (3.82-4.97); Red Cell Distribution Width 13.1 % (11.5-14.5); Segmented Neutrophils % 72.8 %; White Blood Count 11.3 K/mcL (4.3-11.1)
[2020-02-09 18:28] LABS: Prothrombin Time 11.1 Seconds (9.4-12.1)
[2020-02-09 18:54] LABS: BUN/Creatinine Ratio 20 (6-26); Blood Urea Nitrogen 14 mg/dL (8-23); Calcium 9.7 mg/dL (8.6-10.3); Carbon Dioxide 25 mEq/L (23-29); Chloride 96 mEq/L (98-107); Glucose 134 mg/dL (70-105); Osmolality,Calculated 278 (280-300); Sodium 133 mEq/L (136-145); Troponin I < 0.03 ng/mL (< 0.04); eGFR For African Americans > 60 (> 60); eGFR For Non-African Americans > 60 (> 60)
[2020-02-09] MEDS ORDERED: 0.9 % Sodium Chloride 1,000 ML IVC ONE (19:15)
[2020-02-09] MEDS ORDERED: Aspirin 325 MG TABLET PO ONE (19:55)
[2020-02-09] MEDS ORDERED: Ondansetron 4 MG/2 ML VIAL IVP ONE (20:05)
[2020-02-09] MEDS ORDERED: 0.9 % Sodium Chloride 1,000 ML IVC SCH (20:30)
[2020-02-09] MEDS ORDERED: Naloxone 0.4 MG/ML INJ IVP PRN (20:33)
[2020-02-09 21:04] LABS: Bacteria,Urine Few per hpf (None-Few); Bilirubin,Urine Negative (Negative); Blood,Urine Negative (Negative); Clarity,Urine Clear (Clear); Color,Urine Colorless (Yellow); Glucose,Urine (UA) Normal (Normal); Ketones,Urine Negative (Negative); Leukocyte Esterase,Urine Trace (Negative); Nitrite,Urine Negative (Negative); Protein,Urine Negative (Neg-Trace); RBC,Urine 0-3 per hpf (0-3); Specific Gravity,Urine 1.005 (1.010-1.025); Squamous Epithelial Cell,Urine Few per hpf (None-Few); Urobilinogen,Urine Normal (Normal); WBC,Urine 0-3 per hpf (0-3)
[2020-02-09] MEDS ORDERED: D5% in Water 1,000 ML IVC PRN (21:55)
[2020-02-09] MEDS ORDERED: Dextrose Gel 15 GM/37.5 ML TUBE PO PRN ×2 (21:55)
[2020-02-09] MEDS ORDERED: *HR* Dextrose 50 % in Water (Vial) 50 ML VIAL IVP PRN (21:55)
[2020-02-09] MEDS ORDERED: Perflutren Lipid Microsphere 1.3 ML in 0.9 % Sodium Chloride 8.7 ML IVP PRN (21:57)
[2020-02-10 01:55] LABS: Hematocrit 38.3 % (35.3-44.9); Hemoglobin 12.8 g/dL (11.5-15.4); Mean Corpuscular HGB Conc 33.4 g/dL (31.6-35.5); Mean Corpuscular Hemoglobin 33.5 pg (28.0-33.3); Mean Corpuscular Volume 100.3 fL (83.0-100.0); Platelet Count 298 K/mcL (140-400); Red Blood Count 3.82 M/mcL (3.82-4.97); Red Cell Distribution Width 13.1 % (11.5-14.5); White Blood Count 8.5 K/mcL (4.3-11.1)
[2020-02-10 01:57] LABS: Prothrombin Time 11.7 Seconds (9.4-12.1)
[2020-02-10 02:17] LABS: Alanine Aminotransferase 14 Units/L (7-52); Albumin 4.2 g/dL (3.5-5.7); Albumin/Globulin Ratio 1.7 (1.1-2.2); Alkaline Phosphatase 55 Units/L (34-104); Aspartate Amino Transferase 13 Units/L (13-39); BUN/Creatinine Ratio 14 (6-26); Bilirubin,Total 0.5 mg/dL (0.3-1.0); Blood Urea Nitrogen 10 mg/dL (8-23); Calcium 9.3 mg/dL (8.6-10.3); Carbon Dioxide 28 mEq/L (23-29); Chloride 101 mEq/L (98-107); Chol/HDL Ratio 3.7 (0-4.9); Cholesterol 136 mg/dL (< 200); Globulin 2.5 g/dL (2.4-3.5); Glucose 171 mg/dL (70-105); HDL Cholesterol 37 mg/dL (40-59); LDL Cholesterol,Calculated 67 mg/dL (< 100); Osmolality,Calculated 289 (280-300); Potassium 3.5 mEq/L (3.5-5.1); Sodium 138 mEq/L (136-145); Total Protein 6.7 g/dL (6.4-8.9); Triglycerides 159 mg/dL (< 150); Troponin I < 0.03 ng/mL (< 0.04); eGFR For African Americans > 60 (> 60); eGFR For Non-African Americans > 60 (> 60)
[2020-02-10] MEDS: *HR* Heparin 5,000 UNIT/ML VIAL SQ SCH ×2 (05:44→18:06)
[2020-02-10] MEDS: Budesonide/Formoterol 80/4.5 1 PUFF INH IH SCH ×2 (07:30→19:41)
[2020-02-10] MEDS: Insulin LISPRO 300 UNITS/3 ML VIAL SQ SCH ×3 (07:34→17:01)
[2020-02-10] MEDS: Aspirin 325 MG TABLET PO SCH (07:50)
[2020-02-10] MEDS: cilostazoL 100 MG TABLET PO SCH ×2 (07:50→20:54)
[2020-02-10] MEDS ORDERED: Perflutren Lipid Microsphere 1.3 ML in 0.9 % Sodium Chloride 8.7 ML IVP PRN (08:46)
[2020-02-10 08:57] LABS: Estimated Average Glucose 148 mg/dl; Hemoglobin A1C 6.8 %
[2020-02-10] MEDS ORDERED: Aspirin Enteric Coated 81 MG Tablet PO SCH (09:00)
[2020-02-10] MEDS ORDERED: Insulin LISPRO 300 UNITS/3 ML VIAL SQ SCH (21:00)
[2020-02-11] MEDS: *HR* Heparin 5,000 UNIT/ML VIAL SQ SCH (05:11)
[2020-02-11] MEDS: Budesonide/Formoterol 80/4.5 1 PUFF INH IH SCH (07:28)
[2020-02-11 08:02] VITALS: BP 151/79
[2020-02-11] MEDS: Insulin LISPRO 300 UNITS/3 ML VIAL SQ SCH (08:07)
[2020-02-11] MEDS: Aspirin 325 MG TABLET PO SCH (08:08)
[2020-02-11] MEDS: cilostazoL 100 MG TABLET PO SCH (08:08)
== END 2020-02-11 10:52 | disposition home health service (06) ==
LOC: EMEROOARM 16:17 → 3BNU 16:17 → SUATTDRO 20:25 → 3BNU 20:58
PROVIDERS: ADMIT Family Medicine; ATTEND Internal Medicine